=== PATIENT | female | born 1985 | race Caucasian/White ===

== ENCOUNTER → 2016-10-11 | Outpatient (CLI) | payer OTHER ==
[~2016-10-11] MED LIST: ATV/1 PO; CEPH500C PO; CHOL1TAB63 PO; CYCL10TA6 PO; ESCI1TAB10 PO; FERR325T18 PO; FLUO20CA35 PO; HYDR25CA PO; LORA-741 PO; METH4PAK PO; PROP20TA67 PO; SYN125 PO
[2016-10-11 11:38] LABS: THYROID STIMULATING HORMONE 4.61 uIu/ml (0.300-4.500)
== END | disposition home or self-care (01) ==
LOC: C.LAB1850 09:47
PROVIDERS: ATTEND Internal Medicine Endocrinology, Diabetes & Metabolism
DX: E89.0 Postprocedural hypothyroidism (principal)

== ENCOUNTER → 2016-11-14 | Outpatient (CLI) | payer OTHER ==
[2016-11-14 10:08] LABS: THYROID STIMULATING HORMONE 4.36 uIu/ml (0.300-4.500)
== END | disposition home or self-care (01) ==
LOC: C.LAB1850 08:05
PROVIDERS: ATTEND Internal Medicine Endocrinology, Diabetes & Metabolism
DX: E89.0 Postprocedural hypothyroidism (principal)

== ENCOUNTER 2016-11-15 15:54 | Emergency (ER) | payer OTHER ==
[~2016-11-15] VITALS: Ht 160 cm; Wt 53.4 kg
[~2016-11-15 15:54] MED LIST changes: -CEPH500C PO; -CHOL1TAB63 PO; -CYCL10TA6 PO; -ESCI1TAB10 PO; -FERR325T18 PO; -FLUO20CA35 PO; -HYDR25CA PO; -LORA-741 PO; -METH4PAK PO; -PROP20TA67 PO; -SYN125 PO
[2016-11-15 15:58] VITALS: TEMP 36.5; Ht 160 cm; Wt 53.4 kg
[2016-11-15] MEDS ORDERED: SYN125 PO (16:11)
[2016-11-15] MEDS ORDERED: SODIUM CHLORIDE 0.9% 1000ML 1,000 ML IV STA (16:37)
[2016-11-15 16:48] LABS: BASO % 0.4 %; BASO ABS # 0.03 K/uL (0-0.2); COMPLETE YES; HEMATOCRIT 44.7 % (37-47); IG% 0.1 %; LYMPH % 24.1 %; LYMPH ABS # 1.89 K/uL (1.2-3.4); MEAN CELL VOLUME 93.9 fL (80-100); MEAN CORPUSCULAR HEMOGLOBIN 33.2 pg (25-34); MEAN CORPUSCULAR HGB CONC 35.3 g/dl (32-36); MEAN PLATELET VOLUME 11.8 fL (7.4-10.4); MONO % 4.1 %; NEUT % 70.3 %; PLATELET COUNT 216 K/uL (130-400); RED BLOOD COUNT 4.76 M/uL (4.2-5.4); WHITE BLOOD COUNT 7.83 K/uL (4.8-10.8)
[2016-11-15 16:59] LABS: PREG INTERNAL NEGATIVE QC NEG CLEAR BACKGROUND; PREG INTERNAL POSITIVE QC POS CONTROL LINE
[2016-11-15 17:01] LABS: BUN/CREATININE RATIO 14.2 (10-20); CREATININE 0.7 mg/dl (0.60-1.20); POTASSIUM 3.3 mmol/L (3.5-5.1)
[2016-11-15 17:04] LABS: ALB/GLOB RATIO 1.3 (0.9-2)
--- NOTE | 2016-11-15 18:38 | EMERGENCY ROOM VISIT NOTE ---
History Report prepared by Saw: Gen Denton Under the Supervision of: Dr. Renny Billings D.O. First contact with patient: 16:33 Chief Complaint: DIZZY Stated Complaint: DIZZY,LEFT SIDE PAIN, NECK, EAR,HEAD Nursing Triage Summary: Pt states intermittent dizziness with movement for the past couple days, "today was lightheaded on way home from work and felt like she was going to pass out", pain on left side of neck/ear and pressure in left eye. History of Present Illness The patient is a 31 year old female who presents to the Emergency Room with complaints of episodes of dizziness beginning a couple days ago. She notes today she was driving home from work when "things started to spin", and she became anxious and sweaty and decided to come to the ER. The patient also notes her heart has been beating "hard" recently, especially when lying down at night. She notes she had a thyroid test done yesterday which resulted in higher levels. The patient adds that she has had a "pressure" pain on the left side of her neck, left ear, and behind her left eye. She reports her last known menstrual period was 6 days ago and that today is the last day. She reports having a history of a tubal ligation. Source of History: patient Onset: a couple days ago Position: head Quality: other (dizziness) Timing: other (episodes) Associated Symptoms: + neck pain Note: The patient notes having left ear pain and pain behind her left eye. Review of Systems See HPI for pertinent positives & negatives. A total of 10 systems reviewed and were otherwise negative. Past Medical & Surgical Medical Problems: (1) Anxiety (2) Graves' disease (3) Hyperthyroidism Family History FH: lupus Social History Smoking Status: Current Every Day Smoker Alcohol Use: occasionally Marital Status: single Housing Status: lives with family Occupation Status: employed Current/Historical Medications Scheduled Levothyroxine Sodium (Synthroid), 1 TAB PO DAILY Lorazepam (Ativan), 1 MG PO BID Allergies Coded Allergies: No Known Allergies (Unverified , `, 11/15/16) Physical Exam Vital Signs Date Time Temp Pulse Resp B/P Pulse Ox O2 Delivery O2 Flow Rate FiO2 11/15/16 18:52 70 18 119/80 100 11/15/16 17:58 70 18 116/79 100 Room Air 11/15/16 16:05 82 18 133/84 98 Room Air 88 132/93 81 137/91 11/15/16 15:58 36.5 95 18 137/94 100 Room Air Physical Exam VITAL SIGNS: were reviewed as above. GENERAL:Non-toxic in appearance. SKIN: Warm dry and pink. HEAD: Normocephalic and atraumatic. OROPHARYNX: Is clear and moist NECK: Supple without lymphadenopathy or meningismus. LUNGS: clear. HEART: Regular rate and rhythm. ABDOMEN: Soft and nontender. EXTREMITIES: Warm and well perfused. NEUROLOGICALLY: Awake alert and oriented without focal deficit. Cranial nerves 2 -12 are intact. There is no pronator drift. Cerebellar testing is within normal limits. There is no nystagmus. There is no facial droop. Speech is clear. Vision is grossly normal. MUSCULOSKELETAL: Good muscle tone. No evidence of trauma. Medical Decision & Procedures Laboratory Results 11/15/16 16:12 Red Blood Count 4.76, Mean Corpuscular Volume 93.9, Mean Corpuscular Hemoglobin 33.2, Mean Corpuscular Hemoglobin Concent 35.3, Mean Platelet Volume 11.8, Neutrophils (%) (Auto) 70.3, Lymphocytes (%) (Auto) 24.1, Monocytes (%) (Auto) 4.1, Eosinophils (%) (Auto) 1.0, Basophils (%) (Auto) 0.4, Neutrophils # (Auto) 5.50, Lymphocytes # (Auto) 1.89, Monocytes # (Auto) 0.32, Eosinophils # (Auto) 0.08, Basophils # (Auto) 0.03 11/15/16 16:12 Test 11/15/16 16:10 11/15/16 16:12 Urine Test NEG (NEG) White Blood Count 7.83 K/uL (4.8-10.8) Red Blood Count 4.76 M/uL (4.2-5.4) Hemoglobin 15.8 g/dL (12.0-16.0) Hematocrit 44.7 % (37-47) Mean Corpuscular Volume 93.9 fL (80-100) Mean Corpuscular Hemoglobin 33.2 pg (25-34) Mean Corpuscular Hemoglobin Concent 35.3 g/dl (32-36) Platelet Count 216 K/uL (130-400) Mean Platelet Volume 11.8 fL (7.4-10.4) Neutrophils (%) (Auto) 70.3 % Lymphocytes (%) (Auto) 24.1 % Monocytes (%) (Auto) 4.1 % Eosinophils (%) (Auto) 1.0 % Basophils (%) (Auto) 0.4 % Neutrophils # (Auto) 5.50 K/uL (1.4-6.5) Lymphocytes # (Auto) 1.89 K/uL (1.2-3.4) Monocytes # (Auto) 0.32 K/uL (0.11-0.59) Eosinophils # (Auto) 0.08 K/uL (0-0.5) Basophils # (Auto) 0.03 K/uL (0-0.2) RDW Standard Deviation 43.3 fL (36.4-46.3) RDW Coefficient of Variation 12.5 % (11.5-14.5) Immature Granulocyte % (Auto) 0.1 % Immature Granulocyte # (Auto) 0.01 K/uL (0.00-0.02) Anion Gap 8.0 mmol/L (3-11) Est Creatinine Clear Calc Drug Dose 95.4 ml/min Estimated GFR () 132.9 Estimated GFR (Non- 114.6 BUN/Creatinine Ratio 14.2 (10-20) Calcium Level 9.0 mg/dl (8.5-10.1) Total Bilirubin 0.4 mg/dl (0.2-1) Aspartate Amino Transf (AST/SGOT) 15 U/L (15-37) Alanine Aminotransferase (ALT/SGPT) 22 U/L (12-78) Alkaline Phosphatase 70 U/L (45-117) Total Protein 8.6 gm/dl (6.4-8.2) Albumin 4.9 gm/dl (3.4-5.0) Globulin 3.7 gm/dl (2.5-4.0) Albumin/Globulin Ratio 1.3 (0.9-2) Laboratory results as stated above per my review. Medications Administered Medications (Trade) Dose Ordered Sig/Johny Route Start Time Stop Time Status Last Admin Dose Admin Sodium Chloride (Nss 1000ml) 1,000 ml @ 999 mls/hr Q1H1M STAT IV 11/15/16 16:37 11/15/16 17:37 DC 11/15/16 16:37 999 MLS/HR ED Course 1635: Previous medical records were reviewed. The patient was evaluated in room A3. A complete history and physical examination was performed. 1637: Ordered NSS 1,000 ml @ 999 mls/hr IV. 1845: On reevaluation, the patient is doing well. I discussed the results and findings with the patient. She verbalized agreement of the treatment plan. The patient was discharged home. Medical Decision Differential includes acute coronary syndrome, myocardial infarction, CVA, TIA, anemia, infection, pneumonia, UTI, pyelonephritis, poor nutrition, dehydration, electrolyte disturbance,hypoglycemia. Is a 31-year-old female who presents to the ED with a chief complaint dizziness. The patient states that she has had it lightly for the past couple of days. Today while she was driving, she became more lightheaded and that made her anxious. She also reports that she has had some pounding sensation in her heart at night for the past few nights. She states that her doctor checked her thyroid yesterday. She states that the number was slightly elevated. The patient's vital signs are normal. Her exam was normal. CBC, complete metabolic panel and test are normal. She is not . Orthostatic vital signs are normal. The patient was hydrated with IV fluids. She is felt to be stable for discharge. Impression Primary Impression: Dizziness Scribe Attestation The scribe's documentation has been prepared under my direction and personally reviewed by me in its entirety. I confirm that the note above accurately reflects all work, treatment, procedures, and medical decision making performed by me. Departure Information Dispostion Home / Self-Care Referrals Rebel Martinez M.D. (PCP) Patient Instructions Dizziness Fainting Poss Causes, My [facility] Additional Instructions Follow-up with your doctor for further care and evaluation in 1-2 days. Return to the emergency department for worsening or new symptoms or any concerns. You have been examined and treated today on an emergency basis only. This is not a substitute for, or an effort to provide, complete comprehensive medical care. It is impossible to recognize and treat all injuries or illnesses in a single emergency department visit. It is therefore important that you follow up closely with your doctor. Call as soon as possible for an appointment.
[2016-11-15 18:52] VITALS: BP 119/80; PULSE 70; O2SAT 100
== END 2016-11-15 18:55 | disposition home or self-care (01) ==
LOC: C.EDB 15:56 → C.EDA 18:55
DX: R42 Dizziness and giddiness (principal); F41.9 Anxiety disorder, unspecified; E05.00 Thyrotoxicosis with diffuse goiter without thyrotoxic crisis or storm; F17.200 Nicotine dependence, unspecified, uncomplicated; Z79.899 Other long term (current) drug therapy; Z82.69 Family history of other diseases of the musculoskeletal system and connective tissue

== ENCOUNTER → 2017-01-16 | Outpatient (CLI) | payer OTHER ==
[~2017-01-16] MED LIST changes: +CEPH500C PO; +CHOL1TAB63 PO; +CYCL10TA6 PO; +ESCI1TAB10 PO; +FERR325T18 PO; +FLUO20CA35 PO; +HYDR25CA PO; +LORA-741 PO; +METH4PAK PO; +PROP20TA67 PO; +SYN125 PO
[2017-01-16 13:04] LABS: THYROID STIMULATING HORMONE 6.38 uIu/ml (0.300-4.500)
[2017-01-16 13:48] LABS: ALT/SGPT 21 U/L (12-78); AST/SGOT 12 U/L (15-37); BLOOD UREA NITROGEN 15 mg/dl (7-18); CALCIUM 8.7 mg/dl (8.5-10.1); CARBON DIOXIDE 26 mmol/L (21-32); CHLORIDE 106 mmol/L (98-107); CREATININE 0.71 mg/dl (0.60-1.20); GLUCOSE 114 mg/dl (70-99); POTASSIUM 4.2 mmol/L (3.5-5.1); SODIUM 138 mmol/L (136-145)
[2017-01-16 13:50] LABS: ALB/GLOB RATIO 1.3 (0.9-2); ALKALINE PHOSPHATASE 70 U/L (45-117)
== END | disposition home or self-care (01) ==
LOC: C.LABPBG 08:10
PROVIDERS: ATTEND Nurse Practitioner Adult Health
DX: R25.2 Cramp and spasm (principal); E89.0 Postprocedural hypothyroidism

== ENCOUNTER 2017-01-17 07:58 | Emergency (ER) | payer OTHER ==
[~2017-01-17] VITALS: Ht 160 cm; Wt 51.3 kg
[~2017-01-17 07:58] MED LIST changes: -CEPH500C PO; -CHOL1TAB63 PO; -CYCL10TA6 PO; -ESCI1TAB10 PO; -FERR325T18 PO; -FLUO20CA35 PO; -HYDR25CA PO; -LORA-741 PO; -METH4PAK PO; -PROP20TA67 PO
[2017-01-17 08:02] VITALS: TEMP 36.4; Ht 160 cm; Wt 51.3 kg
[2017-01-17] MEDS ORDERED: FLUO20CA35 PO (08:08)
[2017-01-17] MEDS ORDERED: PROP20TA67 PO (08:08)
[2017-01-17 08:41] LABS: BASO % 0.5 %; BASO ABS # 0.03 K/uL (0-0.2); COMPLETE YES; EOS % 1.9 %; HEMATOCRIT 43.6 % (37-47); IG% 0.2 %; LYMPH % 20.5 %; LYMPH ABS # 1.16 K/uL (1.2-3.4); MEAN CELL VOLUME 95.4 fL (80-100); MEAN CORPUSCULAR HGB CONC 34.6 g/dl (32-36); MEAN PLATELET VOLUME 11.1 fL (7.4-10.4); MONO % 7.8 %; NEUT % 69.1 %; PLATELET COUNT 205 K/uL (130-400); RED BLOOD COUNT 4.57 M/uL (4.2-5.4); WHITE BLOOD COUNT 5.67 K/uL (4.8-10.8)
[2017-01-17 08:58] LABS: CALCIUM 8.7 mg/dl (8.5-10.1)
[2017-01-17 08:59] LABS: ALT/SGPT 19 U/L (12-78); BLOOD UREA NITROGEN 12 mg/dl (7-18); BUN/CREATININE RATIO 15.3 (10-20); CARBON DIOXIDE 30 mmol/L (21-32); CHLORIDE 104 mmol/L (98-107); CREATININE 0.76 mg/dl (0.60-1.20); GLUCOSE 79 mg/dl (70-99); SODIUM 138 mmol/L (136-145)
[2017-01-17 09:00] LABS: ACETAMINOPHEN < 2 ug/ml (10-30)
[2017-01-17 09:06] LABS: URINE APPEARANCE CLOUDY (CLEAR); URINE BILIRUBIN NEG (NEG); URINE COLOR YELLOW; URINE EPITHELIAL CELL AUTO >30 /lpf (0-5); URINE NITRITE NEG (NEG); URINE SPECIFIC GRAVITY 1.024 (1.000-1.030); UROBILINOGEN NEG (NEG)
[2017-01-17 09:07] LABS: MANUAL MICROSCOPIC REQUIRED? NO; REVIEW REQ? NO
--- NOTE | 2017-01-17 09:12 | DIAGNOSTIC IMAGING REPORT ---
CT OF THE HEAD WITHOUT CONTRAST CLINICAL HISTORY: EVALUATE FOR PSYCH CLEARANCE COMPARISON STUDY: MRI of the brain August 05, 2015. CT DOSE: 710.65 mGycm TECHNIQUE: Helical axial images of the head were obtained without IV contrast. Automated exposure control was utilized for the study. FINDINGS: No acute intracranial hemorrhage, midline shift or mass effect is present. Brain volume is normal. Ventricular system is normal. Basilar cisterns are patent. There are no extra-axial collections. Yeboah-white differentiation is maintained. There are no findings to suggest acute dural sinus thrombosis or acute territorial infarct. There are no significant calvarial abnormalities. Visualized portions of the sinuses and mastoid air cells are clear. IMPRESSION: No acute intracranial findings. Electronically signed by: Luis A Newman M.D. 01/17/2017 9:11 AM Dictated Date/Time: 01/17/2017 9:00 AM
[2017-01-17 09:15] LABS: ALKALINE PHOSPHATASE 61 U/L (45-117); AST/SGOT 13 U/L (15-37)
[2017-01-17 09:36] LABS: BENZODIAZEPINE, URINE NEG (NEG); COCAINE,URINE NEG (NEG); PHENCYCLIDINE, URINE NEG (NEG)
[2017-01-17 11:11] VITALS: BP 115/80; PULSE 67; O2SAT 99
[2017-01-17] MEDS ORDERED: HYDR25CA PO (11:30)
--- NOTE | 2017-01-17 15:58 | EMERGENCY ROOM VISIT NOTE ---
History Report prepared by Saw: Kim Munoz Under the Supervision of: Dr. Marbin Gil M.D. First contact with patient: 08:05 Chief Complaint: HEADACHE Stated Complaint: PRESSURE ON LT SIDE OF HEAD/NECK, ADRELANE RUSHES History of Present Illness The patient is a 31 year old female who presents to the Emergency Room with complaints of a worsening left-sided headache that started several weeks ago. The patient describes the headache as a pressure with intermittent sharp pains. She is also experiencing left-sided neck pain and states that she intermittently feels "foggy." She also states that she experiences "adrenaline rushes" in the middle of the night that keep her awake and she experiences some nausea with them. Additionally, the patient reports that she occasionally experiences shortness of breath, but she attributes it to hyperventilating. Pt denies LOC, fevers, chills, visual changes/double vision, neck pain/stiffness, thunder clap or sudden onset of headache, ear problems/hearing loss, chest pain , back pain, vomiting, abdominal pain, urinary symptoms, numbness or tingling, weakness, lymphadenopathy, rash, suicidal/homicidal ideation, or other complaints. The patient was seen in the ED about 2 months ago for similar symptoms. At that time, the patient was experiencing dizziness with a similar left-sided headache. Today, the patient's headache is worse than it was when she was here 2 months ago and she still has the dizziness, but it is not as severe as it was 2 months ago. The patient states that she came into the ED today because she is concerned that something else is wrong with her beside her anxiety. She states that she has a history of anxiety and that her anxiety has been worse over the last 2 weeks. She has been following with her PCP for her anxiety and states that her PCP just prescribed her more Ativan 1-2 days ago after they evaluated her in the office. However, she states that the Ativan is not really working. The patient has also been following with a psychiatric therapist and is waiting to get in to see the psychologist. She states that she is working with her therapist to figure out what triggers her anxiety because it is not anything specific. The patient is on Ativan at home and she states that she typically takes 1 mg twice daily, but last night she took an extra 0.5 mg to help her fall asleep. She states that being on Ativan makes it hard to function so she does not like to take more than she has to. She has been on Ativan for 1.5 years now. The patient states that the most recent imaging of her head was a MRI a few years ago for left-sided numbness. She denies any recent alcohol or drug use. The patient adds that she occasionally has a "knot" in the back of her left calf that will stay for a couple days then resolve on its own. Source of History: patient Onset: several weeks ago Position: head (left-sided) Quality: pressure, sharp (intermittently) Timing: worsening Modifying Factors (Relieving): other (None) Associated Symptoms: + SOB (attributes to hyperventilation), + nausea (with adrenaline rushes), + neck pain (left-sided) Note: dizziness, "adrenaline rushes," feels "foggy" Review of Systems See HPI for pertinent positives and negatives. A total of ten systems were reviewed and were otherwise negative. Past Medical & Surgical Medical Problems: (1) Anxiety (2) Body aches (3) Graves' disease (4) Hyperthyroidism (5) Palpitations (6) Rash of entire body Family History FH: lupus Social History Smoking Status: Current Every Day Smoker Alcohol Use: occasionally Marital Status: single Housing Status: lives with family Occupation Status: employed Current/Historical Medications Scheduled Fluoxetine (Prozac), 20 MG PO HS Levothyroxine Sodium (Synthroid), 125 MCG PO DAILY Lorazepam (Ativan), 1 MG PO BID Propranolol (Inderal), 20 MG PO UD Scheduled PRN Hydroxyzine Pamoate (Vistaril), 1-2 CAP PO Q6 PRN for Anxiety Allergies Coded Allergies: No Known Allergies (Unverified , `, 11/15/16) Physical Exam Vital Signs Date Time Temp Pulse Resp B/P Pulse Ox O2 Delivery O2 Flow Rate FiO2 01/17/17 11:11 67 15 115/80 99 Room Air 01/17/17 09:52 69 18 94/63 98 Room Air 01/17/17 08:02 36.4 81 18 129/79 100 Room Air Physical Exam GENERAL: Awake, alert, well appearing, no distress HENT: Normocephalic, atraumatic. TM's normal. Oropharynx unremarkable. EYES: PERRL. EOMI. Normal conjunctiva. Sclera non-icteric. NECK: Supple. No nuchal rigidity. FROM. No JVD or bruit. RESPIRATORY: CTA CARDIAC: RRR. No murmur. ABDOMEN: Soft, non distended. No tenderness to palpation. No rebound or guarding. No masses. MUSCULOSKELETAL: Unremarkable. No edema. No discoloration. Gross motor strength symmetric. NEURO: Cranial nerves 2-12 grossly intact. Normal sensorium. No sensory or motor deficits noted. Speech normal. No pronator drift. SKIN: No rash or jaundice noted. LYMPH: No adenopathy. PSYCH: Mildly anxious mood. No suicidal ideation. No homicidal ideation. Medical Decision & Procedures ER Provider Diagnostic Interpretation: Radiology results as stated below per my review and radiologist interpretation CT OF THE HEAD WITHOUT CONTRAST FINDINGS: No acute intracranial hemorrhage, midline shift or mass effect is present. Brain volume is normal. Ventricular system is normal. Basilar cisterns are patent. There are no extra-axial collections. Yeboah-white differentiation is maintained. There are no findings to suggest acute dural sinus thrombosis or acute territorial infarct. There are no significant calvarial abnormalities. Visualized portions of the sinuses and mastoid air cells are clear. IMPRESSION: No acute intracranial findings. Electronically signed by: Luis A Newman M.D. 01/17/2017 9:11 AM Dictated Date/Time: 01/17/2017 9:00 AM Laboratory Results 01/17/17 08:27 Red Blood Count 4.57, Mean Corpuscular Volume 95.4, Mean Corpuscular Hemoglobin 33.0, Mean Corpuscular Hemoglobin Concent 34.6, Mean Platelet Volume 11.1, Neutrophils (%) (Auto) 69.1, Lymphocytes (%) (Auto) 20.5, Monocytes (%) (Auto) 7.8, Eosinophils (%) (Auto) 1.9, Basophils (%) (Auto) 0.5, Neutrophils # (Auto) 3.92, Lymphocytes # (Auto) 1.16, Monocytes # (Auto) 0.44, Eosinophils # (Auto) 0.11, Basophils # (Auto) 0.03 01/17/17 08:27 Test 01/17/17 08:27 01/17/17 08:58 White Blood Count 5.67 K/uL (4.8-10.8) Red Blood Count 4.57 M/uL (4.2-5.4) Hemoglobin 15.1 g/dL (12.0-16.0) Hematocrit 43.6 % (37-47) Mean Corpuscular Volume 95.4 fL (80-100) Mean Corpuscular Hemoglobin 33.0 pg (25-34) Mean Corpuscular Hemoglobin Concent 34.6 g/dl (32-36) Platelet Count 205 K/uL (130-400) Mean Platelet Volume 11.1 fL (7.4-10.4) Neutrophils (%) (Auto) 69.1 % Lymphocytes (%) (Auto) 20.5 % Monocytes (%) (Auto) 7.8 % Eosinophils (%) (Auto) 1.9 % Basophils (%) (Auto) 0.5 % Neutrophils # (Auto) 3.92 K/uL (1.4-6.5) Lymphocytes # (Auto) 1.16 K/uL (1.2-3.4) Monocytes # (Auto) 0.44 K/uL (0.11-0.59) Eosinophils # (Auto) 0.11 K/uL (0-0.5) Basophils # (Auto) 0.03 K/uL (0-0.2) RDW Standard Deviation 42.1 fL (36.4-46.3) RDW Coefficient of Variation 12.1 % (11.5-14.5) Immature Granulocyte % (Auto) 0.2 % Immature Granulocyte # (Auto) 0.01 K/uL (0.00-0.02) Anion Gap 4.0 mmol/L (3-11) Est Creatinine Clear Calc Drug Dose 86.1 ml/min Estimated GFR () 120.3 Estimated GFR (Non- 103.8 BUN/Creatinine Ratio 15.3 (10-20) Calcium Level 8.7 mg/dl (8.5-10.1) Total Bilirubin 0.4 mg/dl (0.2-1) Direct Bilirubin < 0.1 mg/dl (0-0.2) Aspartate Amino Transf (AST/SGOT) 13 U/L (15-37) Alanine Aminotransferase (ALT/SGPT) 19 U/L (12-78) Alkaline Phosphatase 61 U/L (45-117) Total Protein 7.5 gm/dl (6.4-8.2) Albumin 4.1 gm/dl (3.4-5.0) Thyroid Stimulating Hormone (TSH) 4.960 uIu/ml (0.300-4.500) Free Thyroxine 1.82 ng/dl (0.80-1.60) Free Triiodothyronine 2.91 pg/ml (2.30-4.20) Salicylates Level 3.2 mg/dl (2.8-20) Acetaminophen Level < 2 ug/ml (10-30) Ethyl Alcohol mg/dL < 3.0 mg/dl (0-3) Urine Color YELLOW Urine Appearance CLOUDY (CLEAR) Urine pH 6.0 (4.5-7.5) Urine Specific Hanna 1.024 (1.000-1.030) Urine Protein NEG (NEG) Urine Glucose (UA) NEG (NEG) Urine Ketones TRACE (NEG) Urine Occult Blood NEG (NEG) Urine Nitrite NEG (NEG) Urine Bilirubin NEG (NEG) Urine Urobilinogen NEG (NEG) Urine Leukocyte Esterase TRACE (NEG) Urine WBC (Auto) 1-5 /hpf (0-5) Urine RBC (Auto) 0-4 /hpf (0-4) Urine Hyaline Casts (Auto) 1-5 /lpf (0-5) Urine Epithelial Cells (Auto) >30 /lpf (0-5) Urine Bacteria (Auto) 1+ (NEG) Urine Opiates Screen NEG (NEG) Urine Methadone, Qualitative NEG (NEG) Urine Barbiturates NEG (NEG) Urine Phencyclidine (PCP) Level NEG (NEG) Ur Amphetamine/Methamphetamine NEG (NEG) MDMA (Ecstasy) Screen NEG (NEG) Urine Benzodiazepines Screen NEG (NEG) Urine Cocaine Metabolite NEG (NEG) Urine Marijuana (THC) POS (NEG) Laboratory results reviewed by me ECG Indication: nausea, SOB/dyspnea Rate (beats per minute): 65 Rhythm: normal sinus Findings: no acute ischemic change, no ectopy ED Course 0810: The patient was evaluated in room B2. A complete history and physical exam was performed. 0938: I reassessed the patient. She is resting comfortably. 0940: I discussed the patient's case with the healthcare account manager to setup a psychiatric evaluation. 1025: The Rodney Gonzalez liaison has evaluated the patient and now he is discussing his findings with psychiatry. 1103: Rodney Gonzalez has finished evaluating the patient. They recommend changing the patient's Prozac to the morning and doubling the dose. They are also going to setup an appointment for the patient with psychiatry. 1107: I went to reassess the patient, but she was in the bathroom. 1123: I reevaluated the patient. I reviewed the psych recommendations with her and discussed the option of Hydroxyzine with her instead of Ativan. She would like to try it because she wants to get off of Ativan. Discussed results and discharge instructions with her: she verbalized understanding and agreement. The patient is ready for discharge. Medical Decision Triage Nursing notes reviewed. The patient's presentation and history were concerning for anxiety and left neck and head pressure. Etiologies such as mood disorder, toxicologic, infection, hypoglycemia, electrolyte abnormalities, cardiac sources, intracerebral event, neurologic, as well as others were entertained. The patient was evaluated. ECG, Head CT, and labs were unremarkable. Psychiatry was consulted. After consultation with 3 S. it was recommended that the patient take her Prozac in the morning and double the dose. She will be referred for outpatient follow-up. The patient felt that this was very reasonable. I did discuss possibly some hydroxyzine to minimize her Ativan use and the patient was in agreement with this as she is trying to minimize the use of that medication. Risks and benefits were discussed. I gave my usual and customary discussion regarding this issue. Since the patient is doing well she will be discharged and follow-up as an outpatient. By the evaluation outlined above other emergent etiologies such as those listed in the differential, as well as others, were deemed relatively unlikely. The patient was informed about the findings as listed above. All questions were answered and she was pleased with the treatment. Return instructions were outlined and the patient was discharged in stable condition. The patient was referred to outpatient mental health in her PCP for follow-up for a recheck of the current condition. The chart was completed utilizing [employer] Speech voice recognition software. Grammatical errors, random word insertions, pronoun errors, and incomplete sentences are an occasional consequence of this system due to software limitations, ambient noise, and hardware issues. Any formal questions or concerns about the content, text, or information contained within the body of this dictation should be directly addressed to the physician for clarification. [place] Drug Monitoring Program Search Results: patient reviewed within database, see additional documentation Drug Monitoring Findings: Multiple prescriptions for Ativan from same office. Last Ativan refill was 2 days ago and it was a 30 day supply. Impression Primary Impression: Mood disorder Additional Impression: Anxiety Scribe Attestation The scribe's documentation has been prepared under my direction and personally reviewed by me in its entirety. I confirm that the note above accurately reflects all work, treatment, procedures, and medical decision making performed by me. Departure Information Dispostion Home / Self-Care Prescriptions Hydroxyzine Pamoate (VISTARIL) 25 Mg Cap 1-2 CAP PO Q6 Y for Anxiety, #20 CAP 1 Refill Prov: Marbin Gil MD 01/17/17 Referrals Rebel Martinez M.D. (PCP) Forms HOME CARE DOCUMENTATION FORM, IMPORTANT VISIT INFORMATION Patient Instructions My [facility] Additional Instructions Continue your current medications except double the Prozac dose and take in the morning as discussed by psychiatry. Hydroxyzine: Use 25 to 50 mg every six hours for anxiety. This medication may cause sedation. Do not drive or perform dangerous activity if you are using this medication. You may be able to substitute this dose for a dose of Ativan. Return to the ER for severe headache, chest pain, fever, anxiety or depression, thoughts of hurting yourself or others, inability to function, hallucinations, worsening of your condition, or as needed. Follow up with outpatient services as arranged by psychiatry/mental health. Follow up with your primary care physician this week for a recheck of your current condition and continued care. Problem Qualifiers
== END 2017-01-17 11:35 | disposition home or self-care (01) ==
LOC: C.EDB 08:00
DX: F39 Unspecified mood [affective] disorder (principal); F41.9 Anxiety disorder, unspecified; E05.00 Thyrotoxicosis with diffuse goiter without thyrotoxic crisis or storm; F17.210 Nicotine dependence, cigarettes, uncomplicated; Z79.899 Other long term (current) drug therapy

== ENCOUNTER → 2017-01-22 | Outpatient (CLI) | payer OTHER ==
[~2017-01-22] MED LIST changes: +CEPH500C PO; +CHOL1TAB63 PO; +CYCL10TA6 PO; +ESCI1TAB10 PO; +FERR325T18 PO; +FLUO20CA35 PO; +HYDR25CA PO; +LORA-741 PO; +METH4PAK PO; +PROP20TA67 PO
[2017-01-22 17:53] LABS: THYROID STIMULATING HORMONE 0.994 uIu/ml (0.300-4.500)
== END | disposition home or self-care (01) ==
LOC: C.LABPBG 14:26
PROVIDERS: ATTEND Physician Assistant
DX: N94.6 Dysmenorrhea, unspecified (principal); F41.0 Panic disorder [episodic paroxysmal anxiety]; F41.1 Generalized anxiety disorder; E89.0 Postprocedural hypothyroidism

== ENCOUNTER → 2017-02-25 | Outpatient (CLI) | payer OTHER ==
[2017-02-25 17:44] LABS: THYROID STIMULATING HORMONE 0.501 uIu/ml (0.300-4.500)
== END | disposition home or self-care (01) ==
LOC: C.LABPBG 14:14
PROVIDERS: ATTEND Physician Assistant
DX: E89.0 Postprocedural hypothyroidism (principal)

== ENCOUNTER 2017-05-31 23:06 | Emergency (ER) | payer OTHER ==
[~2017-05-31] VITALS: Ht 160 cm; Wt 53.3 kg
[~2017-05-31 23:06] MED LIST changes: -CEPH500C PO; -CHOL1TAB63 PO; -CYCL10TA6 PO; -ESCI1TAB10 PO; -FERR325T18 PO; -LORA-741 PO; -METH4PAK PO
[2017-05-31 23:12] VITALS: TEMP 36.7; Ht 160 cm; Wt 53.3 kg
--- NOTE | 2017-05-31 23:30 | EMERGENCY ROOM VISIT NOTE ---
History Report prepared by Saw: Harry Lawson Under the Supervision of: Dr. Evgeny Ramires M.D. First contact with patient: 23:20 Chief Complaint: BACK PAIN Stated Complaint: LEFT LEG SENSITIVITY, LOWER BACK PAIN History of Present Illness The patient is a 31 year old female who presents to the Emergency Room with complaints of persistent left low back pain that started a week ago. She adds that she has been having left leg sensitivity to touch as well. The patient notes no calf pain however. She says that she has a history of intermittent sciatic pain, so she is not sure if her current symptoms are related. She adds that her lymph nodes in her left groin have been swollen. The patient states that she was diagnosed with a vitamin B12 deficiency a couple days ago, and is waiting to get in with her doctor for shots. She denies any fevers, shortness of breath, cuts on toes or infection, loss of bowel control, or loss of bladder control. The patient also denies any recent falls, injuries, or long car trips. She notes no history of blood clots. The patient adds that she was recently put on a lot of new medications due to her low vitamin levels. She is not on any blood thinners however. She says that she eats fine, and does not drink alcohol regularly or use IV drugs. Source of History: patient Onset: A week ago Position: back (low left) Timing: other (persistent) Associated Symptoms: No fevers, No SOB Note: Associated symptoms: Left leg sensitivity to touch but denies calf pain. Lymph nodes in left groin have been swollen. Denies cuts on toes or infection, loss of bowel or bladder control. Denies recent falls or trauma. Review of Systems See HPI for pertinent positives & negatives. A total of 10 systems reviewed and were otherwise negative. Past Medical & Surgical Medical Problems: (1) Anxiety (2) Body aches (3) Graves' disease (4) Hyperthyroidism (5) Palpitations (6) Rash of entire body Family History FH: lupus Social History Smoking Status: Never Smoker Alcohol Use: other (rarely) Marital Status: single Housing Status: lives with family Occupation Status: employed Current/Historical Medications Scheduled Cephalexin Monohydrate (Keflex), 500 MG PO TID Cholecalciferol (Vitamin D3), 50,000 UNITS PO WK Escitalopram Oxalate (Lexapro), 20 MG PO DAILY Ferrous Gluconate (Ferrous Gluconate), 324 MG PO BID Levothyroxine Sodium (Synthroid), 125 MCG PO DAILY Methylprednisolone (Medrol Dosepak), 1 PKT PO UD Scheduled PRN Cyclobenzaprine Hcl (Flexeril), 10 MG PO TID PRN for Muscle Spasms Lorazepam (Ativan), 0.5 MG PO BID PRN for Anxiety Allergies Coded Allergies: No Known Allergies (Unverified , `, 11/15/16) Physical Exam Vital Signs Date Time Temp Pulse Resp B/P (MAP) Pulse Ox O2 Delivery O2 Flow Rate FiO2 06/01/17 00:36 70 20 123/81 99 05/31/17 23:12 36.7 78 18 129/83 100 Room Air Physical Exam GENERAL: Patient is mildly anxious appearing and in minimal distress. HEENT: No acute trauma, normocephalic atraumatic, mucous membranes moist, no nasal congestion, no scleral icterus. NECK: No stridor, no adenopathy, no meningismus, trachea is midline. LUNGS: No dyspnea. Clear to auscultation and equal bilaterally. No wheeze, no rhonchi. HEART: Regular rate and rhythm. No murmurs, rubs, gallops appreciated. ABDOMEN: Scant lymphadenopathy of left groin. Soft, nontender, bowel sounds positive, no masses appreciated, no peritonitis. BACK: No midline tenderness, no CVA tenderness EXTREMITIES: Normal motion all extremities, no cyanosis, no edema. NEUROLOGIC: Alert and oriented, no acute motor or sensory deficits, no focal weakness, cranial nerves grossly intact. SKIN: No rash, no jaundice, no diaphoresis. Medical Decision & Procedures ER Provider Diagnostic Interpretation: US results are stated below per my interpretation and the radiologist's interpretation. US VENOUS LEFT LOWER EXTREMITY: No evidence of deep venous thrombosis. Incidental note of small left inguinal lymph nodes, no pathologically enlarged in short axis. Radiologist: Simone Mcgee MD Medications Administered Medications (Trade) Dose Ordered Sig/Johny Route Start Time Stop Time Status Last Admin Dose Admin Cyclobenzaprine HCl (FLEXERIL 10MG Home Pack) 1 homepack UD ONCE PO 06/01/17 00:30 06/01/17 00:31 DC 06/01/17 00:31 1 HOMEPACK Prednisone (PredniSONE TAB) 40 mg NOW STAT PO 06/01/17 00:20 06/01/17 00:22 DC 06/01/17 00:32 40 MG Cephalexin Monohydrate (Keflex Cap) 500 mg NOW ONCE PO 06/01/17 00:30 06/01/17 00:31 DC 06/01/17 00:32 500 MG ED Course 2320: The patient was evaluated in room A11B. A complete history and physical exam was performed. 0015: I reevaluated the patient and she is comfortable and will follow-up with her primary care physician next week. The patient verbally expressed understanding and agreement of the treatment plan. The patient will be discharged. 0020: Ordered Prednisone Tab 40 mg PO. 0030: Ordered Keflex Cap 500 mg PO, Flexeril 10MG Home Pack 1 homepack PO. Medical Decision Differential diagnosis includes but is not limited to: sciatica, cauda equina, epidural hematoma/abscess, shingles, bacterial versus viral infection. Very pleasant 31 yr old female with low left back pain radiating to left leg. No neuro deficits by exam nor history. Notes some swelling to groin which is mild lymphadenitis. US lower leg without evidence DVT. History of sciatica and previously tolerated steroids and Flexeril which seem reasonable treatment. As some lymph swelling and will be starting steroids will go ahead and start some keflex. Reviewed symptoms and findings requiring RTED. Medication Reconcilliation Current Medication List: was personally reviewed by me Blood Pressure Screening Patient's blood pressure: Normal blood pressure Impression Primary Impression: Acute left-sided low back pain with sciatica Additional Impression: Lymphadenitis Scribe Attestation The scribe's documentation has been prepared under my direction and personally reviewed by me in its entirety. I confirm that the note above accurately reflects all work, treatment, procedures, and medical decision making performed by me. Departure Information Dispostion Home / Self-Care Prescriptions Cephalexin Monohydrate (Keflex) 500 Mg Cap 500 MG PO TID for 7 Days, #21 CAP Prov: Evgeny Ramires M.D. 06/01/17 Cyclobenzaprine Hcl (FLEXERIL) 10 Mg Tab 10 MG PO TID Y for Muscle Spasms, #21 TAB Prov: Evgeny Ramires M.D. 06/01/17 Methylprednisolone (MEDROL DOSEPAK) 4 Mg Delroy 1 PKT PO UD for 6 Days, #1 PKT Prov: Evgeny Ramires M.D. 06/01/17 Referrals No Doctor, Assigned (PCP) Patient Instructions My [facility] Additional Instructions Monitor for worsening swelling, pain, fevers, or other locations of swelling. Please have your Primary Provider recheck the lymph swelling. Return immediately if discoloration of leg, weakness, loss of bowel/bladder control or other highly concerning symptoms. Rest and avoid lifting/twisting over the next few days. Problem Qualifiers Primary Impression: Acute left-sided low back pain with sciatica Sciatica laterality: sciatica of left side Qualified Codes: M54.42 - Lumbago with sciatica, left side
[2017-06-01] MEDS ORDERED: METH4PAK PO (00:25)
[2017-06-01] MEDS ORDERED: CYCL10TA6 PO (00:25)
[2017-06-01] MEDS ORDERED: CEPH500C PO (00:25)
[2017-06-01] MEDS ORDERED: CEPHALEXIN MONOHYDRATE 250 MG CAP PO ONE (00:30)
[2017-06-01] MEDS ORDERED: FLEXERIL HOME PACK 10 MG VIAL PO ONE (00:30)
[2017-06-01 00:36] VITALS: BP 123/81; PULSE 70; O2SAT 99
[2017-06-01] MEDS ORDERED: LORA-741 PO (01:26)
[2017-06-01] MEDS ORDERED: FERR325T18 PO (01:27)
[2017-06-01] MEDS ORDERED: ESCI1TAB10 PO (01:28)
[2017-06-01] MEDS ORDERED: CHOL1TAB63 PO (01:29)
--- NOTE | 2017-06-01 06:40 | DIAGNOSTIC IMAGING REPORT ---
ULTRASOUND LEFT VENOUS DOPP LOWER EXT UNILAT CLINICAL HISTORY: left leg pain and groin discomfort COMPARISON STUDY: No previous studies for comparison. FINDINGS: Real-time and color flow Doppler imaging were performed. Flow was seen within the femoral, popliteal and calf veins with no intraluminal thrombus demonstrated. The saphenous vein is patent. There are mildly prominent left inguinal lymph nodes, the largest of which measures 17 x 14 x 8 mm. IMPRESSION: No evidence of left lower extremity DVT. Electronically signed by: Cuong Smith M.D. 06/01/2017 6:39 AM Dictated Date/Time: 06/01/2017 6:38 AM
== END 2017-06-01 00:37 | disposition home or self-care (01) ==
LOC: C.EDB 23:08 → C.EDA 06-01 00:37
DX: M54.42 Lumbago with sciatica, left side (principal); L04.1 Acute lymphadenitis of trunk; E53.8 Deficiency of other specified B group vitamins; F41.9 Anxiety disorder, unspecified; E05.00 Thyrotoxicosis with diffuse goiter without thyrotoxic crisis or storm; R00.2 Palpitations

== ENCOUNTER → 2017-06-10 | Outpatient (CLI) | payer OTHER ==
[~2017-06-10] MED LIST changes: -ATV/1 PO; +CHOL1TAB63 PO; +CYCL10TA6 PO; +ESCI1TAB10 PO; +FERR325T18 PO; -FLUO20CA35 PO; -HYDR25CA PO; +LORA-741 PO; -PROP20TA67 PO
[2017-06-10 12:27] LABS: THYROID STIMULATING HORMONE 0.896 uIu/ml (0.300-4.500)
== END | disposition home or self-care (01) ==
LOC: C.LABPBG 08:49
PROVIDERS: ATTEND Physician Assistant
DX: E05.90 Thyrotoxicosis, unspecified without thyrotoxic crisis or storm (principal)

== ENCOUNTER → 2018-05-01 | Outpatient (CLI) | payer OTHER ==
[~2018-05-01] MED LIST changes: -CYCL10TA6 PO
== END | disposition home or self-care (01) ==
LOC: C.LAB1850 14:51
PROVIDERS: ATTEND Physician Assistant
DX: E89.0 Postprocedural hypothyroidism (principal)